=== PATIENT | female | born 1970 | race Caucasian/White ===

== ENCOUNTER 2016-06-22 18:47 | Emergency (ER) | payer OTHER ==
[~2016-06-22] VITALS: Ht 167.6 cm; Wt 81.6 kg
[2016-06-22 18:57] VITALS: BP 147/91
--- NOTE | 2016-06-22 19:02 | ED HAND/WRIST INJURY COMPLAINT ---
History of Present Illness General Chief Complaint: Animal/Insect Bite Stated Complaint: DOG BITE TO RING FINGER Source: patient Exam Limitations: no limitations Vital Signs & Intake/Output Vital Signs & Intake/Output Vital Signs Date Time Temp Pulse Resp B/P Pulse O2 O2 Flow FiO2 Ox Delivery Rate 06/22 1857 98.8 103 16 147/91 98 Room Air Room Air ED Intake and Output 06/23 0000 06/22 1200 Intake Total 0 Output Total Balance 0 Intake, Oral 0 Patient 180 lb Weight Allergies Coded Allergies: No Known Allergies (06/22/16) Reconcile Medications Amoxicillin/Potassium Clav (Augmentin 875-125 Tablet) 875 MG-125 MG TABLET 1 TAB PO BID open tuft fracture Citalopram Hydrobromide (Citalopram HBr) 20 MG TABLET 1 TAB PO DAILY ANXIETY/ DEPRESSION (Reported) Ibuprofen 800 MG TABLET 1 TAB PO Q8 PRN PAIN Oxycodone HCl/Acetaminophen (Percocet 5-325 MG Tablet) 5 MG-325 MG TABLET 1 TAB PO Q6H PRN PAIN Triage Note: PT TO TRIAGE WITH RIGHT RING FINGER LAC FROM A DOG BITE AT 1800. BLEEDING CONTROLED Triage Nurses Notes Reviewed? yes HPI: Patient is a 45-year-old female presents complaining of dog bite to the right ring finger. Patient reports her dogs got into a fight at home and she went to break up the fight and she sustained a dog bite to her right ring finger. Injury occurred approximately one hour ago. Pain is a throbbing pain currently severe worsens with movement and palpation. Patient's right hand dominant. Patient is unsure of her last tetanus immunization. Patient reports the dogs are up-to-date on their rabies immunizations. Patient denies numbness or decreased range of motion. (JESSIKA PIERSON) Past History Travel History Traveled to [place] past 21 day No Medical History Any Pertinent Medical History? see below for history Neurological: NONE EENT: NONE Cardiovascular: NONE Respiratory: NONE Gastrointestinal: NONE Hepatic: NONE Renal: NONE Musculoskeletal: NONE Psychiatric: anxiety Endocrine: NONE Blood Disorders: NONE Cancer(s): NONE CABINET ASSEMBLER/Reproductive: NONE Surgical History Surgical History: non-contributory Psychosocial History What is your primary language Arabic Tobacco Use: Never used ETOH Use: denies use Illicit Drug Use: denies illicit drug use Family History Hx Contributory? No (JESSIKA PIERSON) Review of Systems Review of Systems Constitutional: Reports: no symptoms. Musculoskeletal: Reports: see HPI. Skin: Reports: see HPI. Neurological/Psychological: Denies: numbness, paresthesia. Hematologic/Endocrine: Reports: bleeding (from wound). Immunologic/Allergic: Reports: no symptoms. (JESSIKA PIERSON) Physical Exam Physical Exam General Appearance: well developed/nourished, alert, awake, anxious Head: atraumatic, normal appearance Eyes: Bilateral: normal appearance. Ears, Nose, Throat: hearing grossly normal Neck: normal inspection, full range of motion Cardiovascular/Respiratory: no respiratory distress Back: normal range of motion Wrist Right: normal range of motion, normal inspection Hand Left: normal inspection, normal range of motion Hand Right: normal range of motion, 1 cm laceration through the fingernail of the right ring finger with nail bed laceration. Capillar refill normal. No visible or functional tendon deficit. Sensation normal. Neurologic/Tendon: normal sensation, normal motor functions, normal tendon functions Skin: warm/dry (JESSIKA PIERSON) Progress Differential Diagnosis: laceration, tendon laceration, foreign body, tuft fracture Plan of Care: Orders Procedure Date/time Status XRY-FINGERS, RIGHT 06/22 1905 Active Discussed with patient leaving the wound open due to the mechanism of injury and infection risk. 1914: Digital block performed for pain control and to irrigate wound. Hand prepped with chlorhexadine prep. Digital block performed using 5 ml of 1% lidocaine. Irrigated with 600ml of sterile saline. Bacitracin, xeroform dressing and finger splint placed by RN. 1929: Results of x-ray discussed with patient. Importance of follow up with hand specialist was discussed. Wound not sutured due to infection risk. (JESSIKA PIERSON) Diagnostic Imaging: Viewed by Me: Radiology Read. Discussed w/RAD: Radiology Read. Radiology Impression: PATIENT: SELINA ALFARO PRESENT AGE: 45 PATIENT ACCOUNT NO: [id number] : 69 LOCATION: [facility] ORDERING PHYSICIAN: JESSIKA LAY SERVICE DATE: 06/22/16 EXAM TYPE: RAD - XRY-FINGERS, RIGHT EXAMINATION: XR FINGER, RIGHT CLINICAL INFORMATION: Dog bite to finger COMPARISON: None TECHNIQUE: Three views of the right Ring finger. FINDINGS: There is a tuft fracture of the distal phalanx of the right fourth digit. Overlying soft tissue injury is noted consistent with a dog bite. No definite radiopaque foreign body. The distal interphalangeal joint is spared. IMPRESSION: A tuft fracture underlies a dog bite of distal right fourth digit. DICTATED BY: ERIK LAUREANO MD DATE/TIME DICTATED:06/22/161939 AIR TURNING MACHINE FEEDER: JONATHAN DATE/TIME TRANSCRIBED:06/22/161939 CONFIDENTIAL, DO NOT COPY WITHOUT APPROPRIATE AUTHORIZATION. <Electronically signed in Other Vendor System> SIGNED BY: ERIK LAUREANO MD 06/22/161943 (JESSIKA PIERSON) Departure Departure Time of Disposition: 1940 Disposition: HOME OR SELF CARE Condition: Stable Clinical Impression Primary Impression: Open fracture of tuft of distal phalanx of finger Secondary Impressions: Nailbed laceration, finger Referrals: MARCOS WHITESIDE,HERBERT CHOUDHARY MD,LUCRECIA HERNANDEZ MD,ERIK Choudhury Additional Instructions: Follow-up with one of the hand specialists listed in your discharge paperwork this upcoming week for further evaluation. Call Friday for appointment. Change the dressing every 1-2 days. Return to the emergency department immediately if pus from the wound, redness spreading from the wound, fevers, or worsening of symptoms. Departure Forms: Customer Survey General Discharge Information Prescriptions: Current Visit Scripts Amoxicillin/Potassium Clav (Augmentin 875-125 Tablet) 1 TAB PO BID #14 TAB Ibuprofen 1 TAB PO Q8 PRN PAIN #20 TAB Oxycodone HCl/Acetaminophen (Percocet 5-325 MG Tablet) 1 TAB PO Q6H PRN PAIN #10 TAB (JESSIKA PIERSON) PA/INSULATION FOREMAN Co-Sign Statement Statement: ED Attending supervision documentation- [] I saw and evaluated the patient. I have also reviewed all the pertinent lab results and diagnostic results. I agree with the findings and the plan of care as documented in the PA's/INSULATION FOREMAN's documentation. [x] I have reviewed the ED Record and agree with the PA's/INSULATION FOREMAN's documentation. [] Additions or exceptions (if any) to the PAs/INSULATION FOREMAN's note and plan are summarized below: [] (MECHE WHITESIDE,MAIKOL)
[2016-06-22] MEDS ORDERED: CITALOPRAM HBR20 MG PO (19:09)
[2016-06-22] MEDS ORDERED: AUGMENTIN 875-1 EACH PO (19:40)
[2016-06-22] MEDS ORDERED: PERCOCET 5-3251 EACH PO (19:40)
[2016-06-22] MEDS ORDERED: IBUPROFEN800 M1 PO (19:40)
--- NOTE | 2016-06-22 19:44 | RADIOLOGY REPORT ---
EXAMINATION: XR FINGER, RIGHT CLINICAL INFORMATION: Dog bite to finger COMPARISON: None TECHNIQUE: Three views of the right Ring finger. FINDINGS: There is a tuft fracture of the distal phalanx of the right fourth digit. Overlying soft tissue injury is noted consistent with a dog bite. No definite radiopaque foreign body. The distal interphalangeal joint is spared. IMPRESSION: A tuft fracture underlies a dog bite of distal right fourth digit.
== END 2016-06-22 19:56 ==
LOC: ERH 18:47
DX: S62.634B Displaced fracture of distal phalanx of right ring finger, initial encounter for open fracture (principal); S61.314A Laceration without foreign body of right ring finger with damage to nail, initial encounter; W54.0XXA Bitten by dog, initial encounter
CPT/HCPCS: 73140-RT; 90471; 90714